=== PATIENT | female | born 1985 | race Caucasian/White ===

== ENCOUNTER 2017-02-13 22:03 | Emergency (ER) | payer SELFPAY ==
[~2017-02-13] VITALS: Ht 162.6 cm; Wt 78.0 kg
[~2017-02-13 22:03] MED LIST: NITROFURANTOIN100 M2 ORAL; NKM; PHENAZOPYRIDIN200 MG ORAL
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
[2017-02-13] MEDS ORDERED: Norco 5mg/325mg tab ORAL ONE (22:45)
[2017-02-13] MEDS ORDERED: IBUPROFEN600 MG ORAL (23:10)
[2017-02-13] MEDS ORDERED: HYDROCODON-ACE1 EA15 ORAL (23:10)
[2017-02-13 23:22] VITALS: BP 109/69
[2017-02-13 23:45] VITALS: BP 109/69
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
== END 2017-02-13 23:45 | disposition home or self-care (01) ==
LOC: EMR 22:28
DX: S00.83XA Contusion of other part of head, initial encounter (principal); S50.12XA Contusion of left forearm, initial encounter; V43.52XA Car driver injured in collision with other type car in traffic accident, initial encounter; Y93.9 Activity, unspecified; Y92.410 Unspecified street and highway as the place of occurrence of the external cause
CPT/HCPCS: 70486; 99284